=== PATIENT | female | born 1955 | race Caucasian/White ===

== ENCOUNTER 2018-02-04 00:18 | Observation (INO) | payer BC, OTHER ==
--- OUTSIDE RECORDS SUMMARY | 2018-02-04 00:20 | XMS REPORT | Clinical Summary ---
:1955 Author Organization [facility] Address [address] [place] [address] Care Team Providers Name Role Phone Olivia Figueredo MD Primary Care Provider Allergies Active Allergy Reactions Severity Noted Date Comments Aspirin Hives 04/09/2017 Current Medications Prescription Sig. Disp. Refills Start Date End Date Status lisinopril Take 20 mg by Active (PRINIVIL,ZESTRIL) mouth daily. 20 mg tablet dulaglutide 1 i njection 12 Syringe 1 12/25/2017 Active (TRULICITY) 1.5 once weekly to mg/0.5 mL pen replace injectorIndications trulicity 0.75 : Type 2 diabetes mellitus without complication, with long-term current use of insulin empagliflozin Take 1 tablet 90 tablet 1 12/25/2017 Active (JARDIANCE) 25 mg (25 mg total) by tablet mouth daily. simvastatin (ZOCOR) 1 tablet once a 90 tablet 1 12/25/2017 Active 20 MG tablet day insulin GLARGINE INJECT 45 TO 55 20 pen 1 12/25/2017 Active (LANTUS SOLOSTAR UNITS AT 8PM U-100 INSULIN) 100 DAILY FOR 1 unit/mL injection WEEK, THEN (pen)Indications: ADJUST DOSAGE UP Type 2 diabetes FOR FASTING mellitus with BLOOD SUGAR hyperglycemia, with BETWEEN 80 AND long-term current 100 (TDD 60 use of insulin UNITS PER DAY) glimepiride Take 1 tablet (1 30 tablet 2 12/25/2017 12/25/19 Active (AMARYL) 1 MG mg total) by 19 tabletIndications: mouth daily Type 2 diabetes before mellitus with breakfast. hyperglycemia, with long-term current use of insulin levothyroxine Take 1 tablet 30 tablet 2 12/25/2017 12/25/19 Active (SYNTHROID, (50 mcg total) 19 LEVOXYL) 50 mcg by mouth every tabletIndications: morning. Acquired hypothyroidism empagliflozin Take 25 mg by 12/25/19 Discontinued (JARDIANCE) 25 mg mouth daily. 18 tablet simvastatin (ZOCOR) Take 20 mg by 11/13/19 Discontinued 20 MG tablet mouth nightly. 18 dulaglutide Inject 0.75 mg 04/09/20 Discontinued (TRULICITY) 0.75 under the skin 17 mg/0.5 mL pen every 7 days. injector insulin GLARGINE Inject 40 Units 07/24/20 Discontinued (LANTUS SOLOSTAR) under the skin 17 100 unit/mL nightly. injection (pen) dulaglutide 1 i njection 12 Syringe 1 04/09/2017 12/25/19 Discontinued (TRULICITY) 1.5 once weekly to 18 mg/0.5 mL pen replace injectorIndications trulicity 0.75 : Type 2 diabetes mellitus without complication, with long-term current use of insulin, Hypoglycemia insulin GLARGINE Use 55 units 20 pen 1 07/24/2017 12/14/19 Discontinued (LANTUS SOLOSTAR) daily for 1 week 18 100 unit/mL than adjust injection dosing up by 2 (pen)Indications: units daily to Type 2 diabetes TDD 65 U /d mellitus with hyperglycemia, with long-term current use of insulin sertraline (ZOLOFT) Take 1 tablet 30 tablet 2 07/24/2017 10/19/20 Discontinued 25 MG (25 mg total) by 17 tabletIndications: mouth daily. Grief counseling sertraline (ZOLOFT) TAKE 1 TABLET BY 30 tablet 2 10/22/2017 12/25/19 Discontinued 25 MG MOUTH ONCE DAILY 18 tabletIndications: Grief counseling simvastatin (ZOCOR) TAKE 1 TABLET BY 90 tablet 0 11/13/2017 12/25/19 Discontinued 20 MG tablet MOUTH DAILY FOR 18 HIGH CHOLESTEROL LANTUS SOLOSTAR 100 INJECT 45 TO 50 15 mL 0 12/14/2017 12/25/19 Discontinued unit/mL injection UNITS AT 8PM 18 (pen)Indications: DAILY FOR 1 Type 2 diabetes WEEK, THEN mellitus with ADJUST DOSAGE UP hyperglycemia, with FOR FASTING long-term current BLOOD SUGAR use of insulin BETWEEN 80 AND 100 (TDD 60 UNITS PER DAY) Active Problems Problem Noted Date Hypertension Hyperlipidemia Diabetes mellitus Overview: type 2 Arthritis Encounters Date Type Specialty Care Team Description 12/25/2017 Office Visit Internal Medicine Olivia Figueredo, Acquired hypothyroidism (Primary Dx); Type 2 diabetes mellitus with hyperglycemia, with long-term current use of insulin; Type 2 diabetes mellitus without complication, with long-term current use of insulin; Mixed hyperlipidemia; Essential hypertension 12/25/2017 Lab Lab Olivia Figueredo, Type 2 diabetes mellitus with hyperglycemia, with long-term current use of insulin; Grief counseling 12/25/2017 Orders Only Internal Medicine Provider, MD Filomena 12/21/2017 Telephone Family Medicine Olivia Figueredo MD 12/14/2017 Refill Internal Medicine Olivia Figueredo, Type 2 diabetes mellitus MD with hyperglycemia, with long-term current use of insulin 11/13/2017 Refill Internal Olivia Dunn MD 10/19/2017 Refill Internal Medicine Olivia Figueredo, Grief counseling 07/24/2017 Office Visit Internal Medicine Olivia Figueredo, Type 2 diabetes mellitus with hyperglycemia, with long-term current use of insulin ( Primary Dx); Grief counseling; Sebaceous cyst of finger of right hand 04/09/2017 Office Visit Internal Medicine Olivia Figueredo, Hypoglycemia ( Primary Dx); Type 2 diabetes mellitus without complication, with long-term current use of insulin; Essential hypertension; Dyslipidemia; Stress at home after 02/03/2017 Immunizations Name Dates Previously Given Next Due Pneumococcal Polysaccharide 11/22/2017 Tdap 11/22/2017 Family History Medical History Relation Name Comments Heart disease Brother stans implants Hypertension Brother Heart disease Father No Known Problems Maternal Grandfather No Known Problems Maternal Grandmother Heart disease Mother No Known Problems Paternal Grandfather No Known Problems Paternal Grandmother Relation Name Status Comments Brother Alive Father (Age 50) Maternal Grandfather Maternal Grandmother Mother Alive Paternal Grandfather Paternal Grandmother Social History Tobacco Use Types Packs/Day Years Used Date Never Smoker Smokeless Tobacco: Never Used Alcohol Use Drinks/Week oz/Week Comments No Sex Assigned at Date Recorded Not on file Last Filed Vital Signs Vital Sign Reading Time Taken Blood Pressure 112/76 12/25/2017 1:44 PM BLOW PIT OPERATOR Pulse 77 12/25/2017 1:44 PM BLOW PIT OPERATOR Temperature 36.9 C (98.4 F) 12/25/2017 1:44 PM BLOW PIT OPERATOR Respiratory Rate - - Oxygen Saturation 97% 12/25/2017 1:44 PM BLOW PIT OPERATOR Inhaled Oxygen Concentration - - Weight 103 kg (227 lb) 12/25/2017 1:44 PM BLOW PIT OPERATOR Height 165.1 cm (5' 5") 12/25/2017 1:44 PM BLOW PIT OPERATOR Body Mass Index 37.77 12/25/2017 1:44 PM BLOW PIT OPERATOR Plan of Treatment Date Type Specialty Care Team Description 03/26/2018 Office Visit Internal Medicine Olivia Figueredo MD [address] [facility] [address] [place] [address] Health Maintenance Due Date Last Done Comments FOOT EXAM 1963 URINE MICROALBUMIN 1963 COLONOSCOPY 2003 PAP SMEAR 11/05/2011 11/05/2008 ZOSTER VACCINE 2013 MAMMOGRAM 12/07/2016 12/07/2014 OPHTHALMOLOGY EXAM 06/05/2018 06/05/2017 INFLUENZA VACCINE Addressed 11/22/2017, 07/06/2016 Overridden with the intention of not completing the topic Results Miscellaneous Lab Result (12/25/2017) Specimen Performing Laboratory Blood after 02/03/2017 Insurance Payer Benefit Plan / Group Subscriber ID Type Phone Address [employer] xxxxxxxxxxxx HMO Home: [address] [phone] [address]
[2018-02-04] MEDS ORDERED: NA CHLORIDE 0.9% 2,000 ML ONE (01:30)
[2018-02-04 01:56] LABS: Absolute Lymphocytes (CBC) 1.8 K/uL (0.7-4.9); Absolute Monocytes 0.8 K/uL (0.1-1.3); Absolute Neutrophil 12.7 K/uL (1.8-8.0); Basophils % 0.6 % (0-1.3); Eosinophils % 1.7 % (0-4.4); Lymphocytes % 11.6 % (15.3-44.8); MCH 29.7 pg (27.0-35.0); MCV 89.6 fL (80-100); MPV 7.6 fL (7.6-11.3)
[2018-02-04 02:02] LABS: Potassium 3.5 mEq/L (3.6-5.0)
[2018-02-04 02:08] LABS: Albumin 3.9 g/dL (3.2-5.5); Bilirubin Direct 0.1 mg/dL (0-0.2); Bilirubin Total 0.8 mg/dL (0.3-1.2); Protein, Total 7.3 g/dL (6.0-8.3)
[2018-02-04 03:41] LABS: Urine Blood NEGATIVE (NEG); Urine Glucose 2+ (NEG); Urine Protein NEGATIVE (NEG); Urine Specific Gravity 1.015 (1.005-1.030); Urine pH 6.5 (5.0-7.0)
[2018-02-04 03:44] LABS: Urine Bacteria <20 /HPF (<20); Urine Culture Reflex Order NOT NEEDED; Urine RBC <5 /HPF (NONE SEEN)
--- NOTE | 2018-02-04 04:52 | EDPHYS ---
Physician Documentation [facility] Name: Lyndon Leija Age: 62 yrs Sex: Female : 1955 Arrival Date: 02/04/2018 Time: 00:19 Bed 16 Private MD: ED Physician Jose Mejia HPI: 02/04 00:46 This 62 yrs old Female presents to ER via Ambulatory with complaints of pkl Dizziness, Dry Mouth. 00:46 The patient presents with abdominal pain that is diffuse. Onset: The symptoms/episode pkl began/occurred today, 6 hour(s) ago. The symptoms do not radiate. Associated signs and symptoms: Pertinent positives: nausea, dizziness, chills and dry mouth. Historical: - Allergies: 00:46 SALICYLATES; aa1 - Home Meds: 00:46 Jardiance Oral once daily [Active]; Lantus Sub-Q [Active]; lisinopril Oral twice a day aa1 [Active]; Simvastatin Oral once daily [Active]; Trulicity subcutaneous subcutaneous [Active]; levothyroxine oral [Active]; - PMHx: 00:46 Diabetes - IDDM; Hyperlipidemia; Hypertension; Hypothyroidism; aa1 - PSHx: 00:46 ortho sx cassi arms; foot sx; aa1 - Immunization history:: Flu vaccine is up to date. - Social history:: Smoking status: Patient/guardian denies using tobacco. ROS: 00:46 Eyes: Negative for injury, pain, redness, and discharge, ENT: Negative for injury, pkl pain, and discharge, Neck: Negative for injury, pain, and swelling, Cardiovascular: Negative for chest pain, palpitations, and edema, Respiratory: Negative for shortness of breath, cough, wheezing, and pleuritic chest pain. 00:46 Abdomen/GI: Positive for abdominal pain, nausea, of the right upper quadrant, left upper quadrant, right lower quadrant and left lower quadrant. 00:46 Back: Negative for acute changes. 00:46 : Negative for urinary symptoms. 00:46 MS/extremity: Negative for acute changes. 00:46 Skin: Negative for rash. 00:46 Neuro: Negative for altered mental status. Exam: 00:46 Head/Face: Normocephalic, atraumatic. Eyes: Pupils equal round and reactive to light, pkl extra-ocular motions intact. Lids and lashes normal. Conjunctiva and sclera are non-icteric and not injected. Cornea within normal limits. Periorbital areas with no swelling, redness, or edema. ENT: Nares patent. No nasal discharge, no septal abnormalities noted. Tympanic membranes are normal and external auditory canals are clear. Oropharynx with no redness, swelling, or masses, exudates, or evidence of obstruction, uvula midline. Mucous membranes moist. Neck: Trachea midline, no thyromegaly or masses palpated, and no cervical lymphadenopathy. Supple, full range of motion without nuchal rigidity, or vertebral point tenderness. No Meningismus. Chest/axilla: Normal chest wall appearance and motion. Nontender with no deformity. No lesions are appreciated. Cardiovascular: Regular rate and rhythm with a normal S1 and S2. No gallops, murmurs, or rubs. Normal PMI, no JVD. No pulse deficits. Respiratory: Lungs have equal breath sounds bilaterally, clear to auscultation and percussion. No rales, rhonchi or wheezes noted. No increased work of breathing, no retractions or nasal flaring. 00:46 Abdomen/GI: Bowel sounds: normal, Palpation: moderate abdominal tenderness, in all quadrants. 00:46 Back: Exam negative for acute changes. 00:46 : Exam negative for acute changes. 00:46 Musculoskeletal/extremity: Exam is negative for acute changes. 00:46 Skin: Exam negative for rash. 00:46 Neuro: Orientation: is normal, Mentation: is normal, Cranial nerves: grossly normal, Motor: is normal. Vital Signs: 00:25 BP 122 / 60; Pulse 86; Resp 30; Temp 98.2(O); Pulse Ox 100% on R/A; Weight 102.06 kg; aa1 Height 5 ft. 5 in. (165.10 cm); Pain 8/10; 02:20 BP 146 / 76; Pulse 88; Resp 20; Pulse Ox 99% on R/A; Pain 5/10; aa1 03:48 BP 155 / 75; Pulse 92; Resp 20; Pulse Ox 98% on R/A; Pain 5/10; aa1 04:44 BP 156 / 67; Pulse 104; Resp 20; Pulse Ox 98% on R/A; Pain 4/10; aa1 05:10 BP 150 / 72 RA Supine (auto/lg); Pulse 105 RA; Resp 20; Temp 102.5(O); Pulse Ox 98% on cb2 R/A; 05:55 BP 145 / 66; Pulse 104; Resp 18; Temp 101.8(O); Pulse Ox 96% ; aa1 00:25 Body Mass Index 37.44 (102.06 kg, 165.10 cm) aa1 MDM: 00:27 Patient medically screened. pkl 04:50 Data reviewed: vital signs, nurses notes, lab test result(s), radiologic studies, CT pkl scan. 04 00:45 Order name: Amylase, Serum; Complete Time: 04:04 pkl 02/04 00:45 Order name: Basic Metabolic Panel; Complete Time: 04:04 pkl 02/04 00:46 Order name: CBC with Diff; Complete Time: 02:02 pkl 02/04 00:46 Order name: Creatinine for Radiology; Complete Time: 02:02 pkl 02/04 00:46 Order name: Hepatic Function; Complete Time: 04:04 pkl 02/04 00:46 Order name: Lipase; Complete Time: 04:04 pkl 02/04 00:46 Order name: Urine Microscopic Only; Complete Time: 04:04 pkl 02/04 01:15 Order name: Urine Dipstick--Ancillary (enter results); Complete Time: 04:04 cb2 02/04 05:00 Order name: Basic Metabolic Panel EDMS 02/04 05:00 Order name: Basic Metabolic Panel EDMS 02/04 05:00 Order name: CBC with Automated Diff EDMS 02/04 05:00 Order name: CBC with Automated Diff EDMS 02/04 00:46 Order name: IV Saline Lock; Complete Time: 01:08 pkl 02/04 00:46 Order name: Labs collected and sent; Complete Time: 01:08 pkl 02/04 00:46 Order name: Urine Dipstick-Ancillary (obtain specimen); Complete Time: 01:08 pkl 02/04 00:46 Order name: CT Abd/Pelvis - W/Contrast pkl 02/04 05:01 Order name: EKG; Complete Time: 05:01 pkl 02/04 05:01 Order name: XRAY CXR (1 view) pkl Administered Medications: 01:15 Drug: NS 0.9% 1000 ml Route: IV; Rate: 1000 ml; Site: right antecubital; aa1 02:32 Follow up: IV Status: Completed infusion aa1 02:32 Drug: NS 0.9% 1000 ml Route: IV; Rate: 125 ml/hr; Site: right antecubital; aa1 04:43 Follow up: IV Status: Infusion continued upon admission aa1 05:09 Drug: Flagyl 500 mg Volume: 100 ml; Route: IVPB; Rate: 200 ml/hr; Infused Over: 30 aa1 mins; Site: right antecubital; 06:05 Follow up: IV Status: Completed infusion aa1 05:10 Drug: Zofran 4 mg Route: IVP; Site: right antecubital; aa1 05:56 Follow up: Response: No adverse reaction; Nausea is decreased aa1 05:10 Drug: LevaQUIN 500 mg Volume: 100 ml; Route: IVPB; Infused Over: 60 mins; Site: right aa1 antecubital; 06:06 Follow up: IV Status: Completed infusion aa1 05:16 Drug: Tylenol 1000 mg Route: PO; aa1 05:56 Follow up: Response: Temperature is decreased aa1 Disposition: 02/04/18 04:51 Hospitalization ordered by Walter Echeverria for Observation. Preliminary diagnosis is Acute appendicitis. - Bed requested for Telemetry/MedSurg (observation). - Status is Observation. aa1 - Condition is Stable. - Problem is new. - Symptoms are unchanged. UTI on Admission? No Signatures: Dispatcher [employer] EDClaudia Mancilla RN RN kl Kern, Alissa, RN RN aa1 Jose Mejia MD MD pkl Corrections: (The following items were deleted from the chart) 05:03 05:00 Lipase ordered. EDMS EDMS 05:03 05:00 Liver (Hepatic) Function ordered. EDMS EDMS
--- NOTE | 2018-02-04 04:52 | ER ---
Nurse's Notes [facility] Name: Lyndon Leija Age: 62 yrs Sex: Female : 1955 Arrival Date: 02/04/2018 Time: 00:19 Bed 16 Private MD: Diagnosis: Acute appendicitis Presentation: 02/04 00:25 Presenting complaint: Patient states: at approx 1830 yesterday evening after eating she aa1 began to have generalized abdominal discomfort with nausea, chills. dry mouth, and dizziness. Reports similar symptoms occurred 2 days prior but resolved on their own. Transition of care: patient was not received from another setting of care. Onset of symptoms was February 03, 2018 at 18:30. Care prior to arrival: None. 00:25 Method Of Arrival: Ambulatory aa1 00:25 Acuity: PAVEL 3 aa1 Historical: - Allergies: 00:46 SALICYLATES; aa1 - Home Meds: 00:46 Jardiance Oral once daily [Active]; Lantus Sub-Q [Active]; lisinopril Oral twice a day aa1 [Active]; Simvastatin Oral once daily [Active]; Trulicity subcutaneous subcutaneous [Active]; levothyroxine oral [Active]; - PMHx: 00:46 Diabetes - IDDM; Hyperlipidemia; Hypertension; Hypothyroidism; aa1 - PSHx: 00:46 ortho sx cassi arms; foot sx; aa1 - Immunization history:: Flu vaccine is up to date. - Social history:: Smoking status: Patient/guardian denies using tobacco. Screenin:30 Abuse screen: Denies threats or abuse. Denies injuries from another. Nutritional aa1 screening: No deficits noted. Tuberculosis screening: No symptoms or risk factors identified. Fall Risk None identified. Assessment: 00:30 General: Appears in no apparent distress. uncomfortable, Behavior is calm, cooperative, aa1 appropriate for age. Pain: Complains of pain in abdomen Pain currently is 8 out of 10 on a pain scale. Quality of pain is described as dull, Pain began suddenly, Is continuous. Neuro: Level of Consciousness is awake, alert, obeys commands, Oriented to person, place, time, situation. Cardiovascular: Denies chest pain, palpitations, shortness of breath, Heart tones S1 S2 present Rhythm is regular. Respiratory: Airway is patent Respiratory effort is even, unlabored, Respiratory pattern is tachypnea. GI: Abdomen is obese, Bowel sounds present X 4 quads. Abd is soft X 4 quads Reports lower abdominal pain, upper abdominal pain, nausea. : No signs and/or symptoms were reported regarding the genitourinary system. EENT: No signs and/or symptoms were reported regarding the EENT system. Derm: Skin is intact, is healthy with good turgor, Skin is pink, warm \T\ dry. Musculoskeletal: Circulation, motion, and sensation intact. Capillary refill < 3 seconds. 01:10 Reassessment: Patient appears in no apparent distress at this time. Patient and/or aa1 family updated on plan of care and expected duration. Pain level reassessed. Patient is alert, oriented x 3, equal unlabored respirations, skin warm/dry/pink. Pt reports pain mostly resolved at this time and would like to wait on pain and nausea medication Patient states feeling better. Patient states symptoms have improved. 01:30 Reassessment: CT notified of finishing contrast. jd3 02:26 Reassessment: Patient appears in no apparent distress at this time. Patient and/or aa1 family updated on plan of care and expected duration. Pain level reassessed. Patient is alert, oriented x 3, equal unlabored respirations, skin warm/dry/pink. Awaiting CT scan. 03:48 Reassessment: Patient appears in no apparent distress at this time. Patient and/or aa1 family updated on plan of care and expected duration. Pain level reassessed. Patient is alert, oriented x 3, equal unlabored respirations, skin warm/dry/pink. Awaiting CT results. 04:43 Reassessment: Patient appears in no apparent distress at this time. Patient and/or aa1 family updated on plan of care and expected duration. Pain level reassessed. Patient is alert, oriented x 3, equal unlabored respirations, skin warm/dry/pink. Awaiting admission by ERP. 05:56 Reassessment: Patient appears in no apparent distress at this time. Patient and/or aa1 family updated on plan of care and expected duration. Pain level reassessed. Patient is alert, oriented x 3, equal unlabored respirations, skin warm/dry/pink. Attempted to call report to floor; nurse unavailable and will call back. 06:24 Reassessment: Patient appears in no apparent distress at this time. Patient is alert, aa1 oriented x 3, equal unlabored respirations, skin warm/dry/pink. Report given to Tori on 2nd floor. Vital Signs: 00:25 BP 122 / 60; Pulse 86; Resp 30; Temp 98.2(O); Pulse Ox 100% on R/A; Weight 102.06 kg; aa1 Height 5 ft. 5 in. (165.10 cm); Pain 8/10; 02:20 BP 146 / 76; Pulse 88; Resp 20; Pulse Ox 99% on R/A; Pain 5/10; aa1 03:48 BP 155 / 75; Pulse 92; Resp 20; Pulse Ox 98% on R/A; Pain 5/10; aa1 04:44 BP 156 / 67; Pulse 104; Resp 20; Pulse Ox 98% on R/A; Pain 4/10; aa1 05:10 BP 150 / 72 RA Supine (auto/lg); Pulse 105 RA; Resp 20; Temp 102.5(O); Pulse Ox 98% on cb2 R/A; 05:55 BP 145 / 66; Pulse 104; Resp 18; Temp 101.8(O); Pulse Ox 96% ; aa1 00:25 Body Mass Index 37.44 (102.06 kg, 165.10 cm) aa1 ED Course: 00:19 Patient arrived in ED. ds1 00:25 Arm band placed on left wrist. Patient placed in an exam room, on a stretcher. aa1 00:27 Jose Mejia MD is Attending Physician. pkl 00:30 Patient has correct armband on for positive identification. Bed in low position. Call aa1 light in reach. Side rails up X2. Pulse ox on. NIBP on. Warm blanket given. 00:41 Erinn De Luna, RACHEL is Primary Nurse. aa1 00:43 Triage completed. aa1 01:16 Initial lab(s) drawn, by me, sent to lab. Urine collected: clean catch specimen, thiago cb2 colored. Inserted saline lock: 20 gauge in right antecubital area, using aseptic technique. Blood collected. 03:39 CT Abd/Pelvis - W/Contrast In Process Unspecified. EDMS 04:51 Walter Echeverria MD is Hospitalizing Provider. pkl 05:18 No provider procedures requiring assistance completed. Patient admitted, IV remains in aa1 place. 05:51 X-ray completed. Portable x-ray completed in exam room. Patient tolerated procedure kw well. Administered Medications: 01:15 Drug: NS 0.9% 1000 ml Route: IV; Rate: 1000 ml; Site: right antecubital; aa1 02:32 Follow up: IV Status: Completed infusion aa1 02:32 Drug: NS 0.9% 1000 ml Route: IV; Rate: 125 ml/hr; Site: right antecubital; aa1 04:43 Follow up: IV Status: Infusion continued upon admission aa1 05:09 Drug: Flagyl 500 mg Volume: 100 ml; Route: IVPB; Rate: 200 ml/hr; Infused Over: 30 aa1 mins; Site: right antecubital; 06:05 Follow up: IV Status: Completed infusion aa1 05:10 Drug: Zofran 4 mg Route: IVP; Site: right antecubital; aa1 05:56 Follow up: Response: No adverse reaction; Nausea is decreased aa1 05:10 Drug: LevaQUIN 500 mg Volume: 100 ml; Route: IVPB; Infused Over: 60 mins; Site: right aa1 antecubital; 06:06 Follow up: IV Status: Completed infusion aa1 05:16 Drug: Tylenol 1000 mg Route: PO; aa1 05:56 Follow up: Response: Temperature is decreased aa1 Outcome: 04:51 Decision to Hospitalize by Provider. pkl 06:24 Admitted to Med/surg accompanied by tech, family with patient, via wheelchair, room aa1 205, with chart, Report called to Herrin 06:24 Condition: good 06:24 Instructed on the need for admit, Demonstrated understanding of instructions. 06:25 Patient left the ED. aa1 Signatures: Dispatcher [employer] EDErinn Montoya RN RN aa1 Jose Mejia MD MD pkAyla Chung ds1 Delaney Reed Christian cb2 Davies, Jonathon RN RN jd3
[2018-02-04] MEDS ORDERED: MORPHINE 4 MG/ML SYR IV PRN (04:55)
[2018-02-04] MEDS ORDERED: ACETAMINOPHEN 500 MG TAB PO PRN (04:55)
[2018-02-04] MEDS ORDERED: PROMETHAZINE 25 MG/ML VIAL IV PRN (04:58)
[2018-02-04] MEDS ORDERED: Levofloxacin500mg IV 500 MG/100 ML BAG IV SCH (05:00)
[2018-02-04] MEDS ORDERED: D5 0.45 NS 1,000 ML IV SCH (05:00)
[2018-02-04] MEDS ORDERED: Levofloxacin500mg IV 500 MG/100 ML BAG IV ONE (05:13)
[2018-02-04] MEDS ORDERED: ONDANSETRON 4 MG/2 ML VIAL ONE ×2 (05:13→11:11)
[2018-02-04] MEDS ORDERED: METRONIDAZOLE 500mg IVPB 500 MG/100 ML BAG IV ONE (05:13)
[2018-02-04] MEDS ORDERED: ACETAMINOPHEN 500 MG TAB ONE (05:32)
[2018-02-04] MEDS: METRONIDAZOLE 500mg IVPB 500 MG/100 ML BAG IV SCH ×2 (06:00→12:21)
--- NOTE | 2018-02-04 07:23 | RAD REPORT ---
EXAM DESCRIPTION: RAD - Chest Single View - 02/04/2018 5:52 am CLINICAL HISTORY: Preop chest, acute appendicitis COMPARISON: None. TECHNIQUE: AP portable chest image was obtained 0534 hours . FINDINGS: Lung volumes are relatively low. Interstitial markings are mildly prominent with the basel ine the patient unknown. No focal consolidation, mass or failure. Lung markings are probably chronic though minimal interstitial edema or infiltrate cannot be excluded on baseline imaging. Heart and vas culature are normal. No measurable pleural effusion and no pneumothorax. No gross bony abnormality se en. No acute aortic findings suspected. IMPRESSION: Mild prominence of the interstitial markings throughout the lung fernandez suspected to be baseline. No mass, consolidation or significant failure.
--- NOTE | 2018-02-04 07:28 | RAD REPORT ---
EXAM DESCRIPTION: CT - Abdomen Pelvis W Contrast - 02/04/2018 3:40 am CLINICAL HISTORY: Abdominal pain A preliminary written report was provided at the time of the study, and the report was reviewed prio r to final dictation. COMPARISON: None. TECHNIQUE: Biphasic, helical CT imaging of the abdomen and pelvis was performed following 100 ml non -ionic IV contrast. Oral contrast was given. All CT scans are performed using dose optimization technique as appropriate and may include automated exposure control or mA/KV adjustment according to patient size. FINDINGS: No suspicious findings in the lung bases. The liver, spleen, and pancreas show no suspicious findings. Gallbladder and biliary tree are also wi thout suspicious finding. Symmetric renal function is seen with no hydronephrosis or suspicious renal mass. No pyelonephritis o r acute renal parenchymal process. No adrenal abnormality. Mostly contracted urinary bladder shows no suspicious finding. Uterine size is normal. Calcified fibroid seen along the fundus. No primary ovar malcolm process seen. No stomach or small bowel abnormality. The appendix is abnormal measuring 11 mm in diameter. There is wall thickening with periappendiceal inflammatory stranding. A small amount of free fluid is collect ing in the dependent portion of the pelvis. The cecum is low lying which makes the appendix partially retrocecal. No abscess or free air. Colon otherwise without acute or suspicious finding. No pneumat osis. No other area of inflammatory stranding. A small 2 centimeter x 1 centimeter umbilical hernia is present. The neck is 1 centimeter. No bowel involvement or edematous fat. No suspicious bony findings. IMPRESSION: Acute appendicitis with no abscess, free air or other complicating factor. The cecum is low lying which places the appendix retrocecal in the right lower quadrant.
[2018-02-04] MEDS ORDERED: BUPIVACAINE 0.25% PF 10 ML VIAL ONE (10:00)
[2018-02-04] MEDS ORDERED: NA CHLORIDE 0.9% 1,000 ML ONE (10:09)
[2018-02-04] MEDS ORDERED: PROPOFOL 200 MG/20 ML VIAL IV ONE (10:18)
[2018-02-04] MEDS ORDERED: MIDAZOLAM HCL 2 MG/2 ML INJ ONE (10:18)
[2018-02-04] MEDS ORDERED: LIDOCAINE 1% MPF 5 ML VIAL ONE (10:18)
[2018-02-04] MEDS ORDERED: FENTANYL CITR 100 MCG/2 ML ONE (10:19)
[2018-02-04] MEDS ORDERED: ROCURONIUM 50 MG/5 ML VIAL IV ONE (10:19)
[2018-02-04] MEDS ORDERED: KETOROLAC 30 MG/ML INJ ONE (11:11)
[2018-02-04] MEDS ORDERED: GLYCOPYRROLATE 0.2 MG/ML SYR ONE ×2 (11:11)
[2018-02-04] MEDS ORDERED: NEOSTIGMINE 1 MG/ML -5 ML SYRINGE ONE (11:11)
--- NOTE | 2018-02-04 11:15 | P.OP ---
Preoperative diagnosis: Acute Appendicitis Postoperative diagnosis: Acute Appendicitis Primary procedure: Laparoscopic Appendectomy Anesthesia: GETA + Local Estimated blood loss: <10cc Specimen: Appendix Findings: Non-Perforated appendicitis Complications: None Transferred to: Recovery Room Condition: Good
[2018-02-04 11:44] VITALS: O2SAT 94
[2018-02-04 12:24] VITALS: BP 96/54; TEMP 98.7
--- NOTE | 2018-02-04 19:12 | HP ---
Date of Admission: 02/04/2018 Brief History Of Present Illness: The patient is a 62-year-old female who presents with approximatel y 2-day history of severe lower quadrant abdominal pain predominantly in the right lower quadrant and in the periumbilical region. She states that the pain began approximately 2 days ago, it was sharp stabbing and became increased intensity. She has had some lower abdominal type symptoms for approxim ately 2 weeks. It was associated with diarrhea over several days and fever and chills beginning last time. She has had similar episodes before about 9-10 months ago, but they resolved without operativ e management at that time and no admission and/or antibiotics were placed at that time. She has had no nausea, vomiting. No other aggravating or alleviating factors. Past Medical History: Significant for diabetes, hypertension, hyperlipidemia, hypothyroidism. Past Surgical History: She has had bilateral forearm fractures repair and foot surgery. Allergies: SHE IS ALLERGIC TO SALICYLATES SUCH ASPIRIN. Home Medications: Include Jardiance, Lantus, lisinopril, simvastatin, Trulicity, and levothyroxine. Social History: She denies smoking, alcohol, or recreational drug use. She works at the [employer] in [email or web address] at the present facility/hospital facility there. Physical Examination: Vital Signs: At time of my examination, her BMI is 37.4. Blood pressure 110/56, pulse 104, respirat ory rate 18, temperature 99.7. General: She is awake, alert, and oriented. Psychiatric: She is appropriate, conversive. HEENT: She is normocephalic. Sclerae anicteric. Mucous membranes are moist. Oropharynx clear. Neck: Supple. No JVD. Chest: Normal expansion and excursion. Cardiovascular: Regular rate and rhythm. Pulmonary: Clear to auscultation bilaterally. Abdomen: Soft with positive right lower quadrant and focal peritonitis. Positive rebound, positive guarding. Her abdomen is obese generally. Extremities: No clubbing, cyanosis, or edema. Well-healed scars are evident at the bilateral upper extremities. Laboratory Data: Reveals a white blood count of 15.7, hemoglobin of 14.2, hematocrit of 43.0, platel et count is 266. Her neutrophils are 81.1. Her sodium 137, potassium 3.5, chloride 101, carbon diox demario is 27, BUN 25, creatinine 0.9, glucose is 135, total bilirubin is 0.8, AST 24, ALT 20, alkaline p hosphatase is 65, lipase is 19. UA was essentially negative down the line. She had a CT scan perfor med and pelvis. The official dictation shows a retrocecal appendix, which shows evidence of acute ap pendicitis with no abscess or free air or other complicating factor. Small 2 cm x 1 cm umbilical her dimitri is present. The appendix was abnormal measuring approximately 11 mm in diameter. Assessment And Plan: This is a 62-year-old female who presents with signs and symptoms of acute appe ndicitis. 1.IV fluid hydration. 2.Antibiotic coverage. 3.I have explained the risks, benefits, and alternatives of laparoscopic, possible open appendectomy , including but not limited to bleeding, infection, damage to surrounding tissue, need for further op erations and procedures. The patient agrees to proceed as indicated. RADHA/GINA Voice ID: [id number]
--- NOTE | 2018-02-04 21:24 | OP ---
Date of Procedure: 02/04/2018 Surgeon: Walter Echeverria MD, Preoperative Diagnosis: Acute appendicitis. Postoperative Diagnosis: Acute appendicitis. Procedure Performed: Laparoscopic appendectomy. Anesthesia: General endotracheal plus local with 0.25% Marcaine with epinephrine. Estimated Blood Loss: Less than 10 cc. Specimen: Vermiform appendix. Findings: Nonperforated appendicitis with some free pelvic fluid. Complications: None. Disposition: Transferred to recovery room in good condition. Procedure In Detail: After informed consent was obtained, the patient was brought to the operating r oom and prepped and draped in the usual sterile fashion. After adequate anesthesia was achieved, an infraumbilical area was anesthetized with 0.25% Marcaine and sharply incised. A 5-mm trocar was intr oduced into the abdomen without evidence of complication. Insufflation was obtained to 15 mmHg at th is time. The area was inspected. There was no injury to vital structure upon entry into the abdomen . Additional trocar site was chosen in the suprapubic region. This was similarly anesthetized and s harply incised. A 5-mm trocar was introduced into the abdomen without evidence of complication. The umbilical trocar was then up-sized to 12 mm under direct visualization without evidence of complicat ion. Additional trocar site was chosen in the right lower quadrant. Similarly anesthetized and molly ply incised. A 5-mm trocar was introduced into the abdomen without evidence of complication. The ap pendix was then grasped, elevated, and found to be in a retrocecal position. It was not appropriate at this time. However, there were suppurative changes to the area and some free pelvic fluid. The m esoappendiceal window was created with the [place] retractor. After appropriately positioning the a ppendix, an Endo SUDHIR 35 blue load was fired across the base of the appendix with good approximation o f the tissues. The clips were found to be in good anatomic position without any leakage. The LigaSu re device then used to take the mesoappendix down with good hemostasis at this time. The appendix wa s then placed in an EndoCatch bag and removed through the umbilical trocar. Reinsufflation was obtai samantha this time. The area was copiously irrigated multiple times and the pelvis was copiously irrigate d multiple times and suctioned dry until completely clear. The area was inspected for hemostasis, wh ich was achieved at the time at the end of the procedure without any additional hemostatic maneuvers and the clips were found to be in good anatomic position without any leakage. Attention was then turned to the umbilical trocar site. The trocar was then removed and the trocar s ite was closed using a Pa-Joe suture passer with an 0 Vicryl in interrupted fashion with goo d approximation of tissues. The abdomen was completely desufflated under direct visualization withou t evidence of complication. Trocars were then removed. All skin incisions were copiously irrigated multiple times until completely clear and then dried and then all skin incisions were closed with 4-0 Monocryl in a running fashion. Dermabond placed over the top. The patient tolerated the procedure well without evidence of complication and transferred to the PACU in good condition. All counts were correct at the end of the case. RADHA/GINA Voice ID: [id number] Report ID: [id number]
== END 2018-02-04 14:10 | disposition home or self-care (01) ==
LOC: ER 00:18 → ERHOLD 04:54 → 2ND 05:31
PROVIDERS: ADMIT Surgery; ATTEND Surgery
PROC: 0DTJ4ZZ Resection of Appendix, Percutaneous Endoscopic Approach (ICD-10-PCS; principal; 2018-02-04 10:00)
DX: K35.80 Unspecified acute appendicitis (principal); I10 Essential (primary) hypertension; E11.9 Type 2 diabetes mellitus without complications; E78.5 Hyperlipidemia, unspecified; E03.9 Hypothyroidism, unspecified
CPT/HCPCS: 36415; 71045; 74177; 80048; 80076; 81003; 81015; 82150; 82962; 83690; 85025; 88304; 88305; 96361; 96365; 96368; 96375; 99285; G0378; J2250; J2405; J2710; J3010; J7030; Q9967

== ENCOUNTER 2018-03-08 07:52 | Day surgery (SDC) | payer BC ==
--- OUTSIDE RECORDS SUMMARY | 2018-03-08 07:55 | XMS REPORT | Clinical Summary ---
:1955 Author Organization [facility] Address [address] [place] [address] Care Team Providers Name Role Phone Olivia [...] 1 12/25/2017 Active 20 MG tablet day glimepiride Take 1 tablet (1 30 tablet 2 12/25/2017 12/25/19 Active (AMARYL) 1 MG mg total) by 19 tabletIndications: mouth daily Type 2 diabetes before mellitus with breakfast. hyperglycemia, with long-term current use of insulin levothyroxine Take 1 tablet 30 tablet 2 12/25/2017 12/25/19 Active (SYNTHROID, (50 mcg total) 19 LEVOXYL) 50 mcg by mouth every tabletIndications: morning. Acquired hypothyroidism LANTUS SOLOSTAR INJECT 45 TO 55 15 mL 0 03/07/2018 Active U-100 INSULIN 100 UNITS AT 8PM unit/mL injection DAILY FOR 1 (pen)Indications: WEEK, THEN Type 2 diabetes ADJUST DOSAGE UP mellitus with FOR FASTING hyperglycemia, with BLOOD SUGAR long-term current BETWEEN 80 AND use of insulin 100 (TDD 60 UNITS PER DAY) empagliflozin Take 25 mg by 12/25/19 Discontinued [...] AND 100 (TDD 60 UNITS PER DAY) insulin GLARGINE INJECT 45 TO 55 20 pen 1 12/25/2017 03/07/20 Discontinued (LANTUS SOLOSTAR UNITS AT 8PM 18 U-100 INSULIN) 100 DAILY FOR 1 unit/mL injection WEEK, THEN (pen)Indications: ADJUST DOSAGE UP Type 2 diabetes FOR FASTING mellitus with BLOOD SUGAR hyperglycemia, with BETWEEN 80 AND long-term current 100 (TDD 60 use of insulin UNITS PER DAY) Active Problems Problem Noted Date Hypertension Hyperlipidemia Diabetes mellitus Overview: type 2 Arthritis Encounters Date Type Specialty Care Team Description 03/07/2018 Refill Internal Medicine Olivia Figueredo, Type 2 diabetes mellitus with hyperglycemia, with long-term current use of insulin 12/25/2017 Office Visit Internal Medicine Olivia Figueredo, [...] Essential hypertension; Dyslipidemia; Stress at home after 03/07/2017 Immunizations Name Dates Previously Given Next Due [...] Taken Blood Pressure 112/76 12/25/2017 1:44 PM LINUX SOLARIS ADMINISTRATOR Pulse 77 12/25/2017 1:44 PM LINUX SOLARIS ADMINISTRATOR Temperature 36.9 C (98.4 F) 12/25/2017 1:44 PM LINUX SOLARIS ADMINISTRATOR Respiratory Rate - - Oxygen Saturation 97% 12/25/2017 1:44 PM LINUX SOLARIS ADMINISTRATOR Inhaled Oxygen Concentration - - Weight 103 kg (227 lb) 12/25/2017 1:44 PM LINUX SOLARIS ADMINISTRATOR Height 165.1 cm (5' 5") 12/25/2017 1:44 PM LINUX SOLARIS ADMINISTRATOR Body Mass Index 37.77 12/25/2017 1:44 PM LINUX SOLARIS ADMINISTRATOR Plan of Treatment Date Type Specialty Care Team Description 03/26/2018 Office Visit Internal Medicine Olivia Figueredo MD [address] [address] Health Maintenance Due Date Last Done Comments FOOT EXAM 1963 URINE MICROALBUMIN 1963 COLONOSCOPY 2003 SHINGRIX VACCINE (#1) 2003 PAP SMEAR 11/05/2011 11/05/2008 ZOSTER VACCINE 2013 MAMMOGRAM 12/07/2016 12/07/2014 INFLUENZA VACCINE 06/05/2018 11/22/2017, 07/06/2016 OPHTHALMOLOGY EXAM 06/05/2018 06/05/2017 Results Miscellaneous Lab Result (12/25/2017) Specimen Performing Laboratory Blood after 03/07/2017 Insurance Payer Benefit Plan / Group Subscriber ID Type Phone Address [employer] xxxxxxxxxxxx HMO Home: Jazmyne ANAND y [phone] [id number]
[2018-03-08] MEDS ORDERED: NA CHLORIDE 0.9% 1,000 ML ONE (07:58)
[2018-03-08] MEDS ORDERED: LIDOCAINE 1% MPF 5 ML VIAL ONE (09:05)
[2018-03-08] MEDS ORDERED: PROPOFOL 200 MG/20 ML VIAL IV ONE (09:05)
--- NOTE | 2018-03-08 09:41 | ENDO RPT ---
[address], [address] COLONOSCOPY PROCEDURE REPORT EXAM DATE: 03/08/2018 PATIENT NAME: Lyndon Leija MR #: [id number] BIRTHDATE: 1955 ATTENDING: Walter Echeverria DR STATUS: outpatient [employer] SALES DIRECTOR: Gloria Kimble RN and Preston Brown INDICATIONS: The patient is a 62 yr old Female here for a colonoscopy due to colon cancer screening and abdominal pain PROCEDURE PERFORMED: Colonoscopy with biopsy - cold polypectomy MEDICATIONS: Per Anesthesia. ESTIMATED BLOOD LOSS: None CONSENT: The patient understands the risks and benefits of the procedure and understands that these risks include, but are not limited to: sedation, allergic reaction, infection, perforation and/or bleeding. Alternative means of evaluation and treatment include, among others: physical exam, x-rays, and/or surgical intervention. The patient elects to proceed with this endoscopic procedure. DESCRIPTION OF PROCEDURE: During intra-op preparation period all mechanical medical equipment was checked for proper function. Hand hygiene and appropriate measures for infection prevention was taken. Procedure, possible complications, alternatives including, but not limited to possibility of bleeding, perforation, tear, infection, sepsis, need for surgery, need for blood transfusion, were explained to the patient. After the risks, benefits and alternatives of the procedure were thoroughly explained, Informed consent was verified, confirmed and timeout was successfully executed by the treatment team. The patient was placed in the left lateral position. A digital rectal exam was performed and revealed internal hemorrhoids and A digital rectal exam was performed and revealed a skin tag. After appropriate level of anesthesia, the scope was passed. The EC-3890Li ([id number]) endoscope was introduced through the anus and advanced to the cecum, which was identified by the ileocecal valve. The quality of the prep was fair. The instrument was then slowly withdrawn as the colon was fully examined. Scope withdrawal time was 10 minutes. COLON FINDINGS: Three small smooth sessile polyps with friable surfaces were found at the cecum, hepatic flexure, and in the left colon. A polypectomy was performed with jumbo cold forceps. The resection was complete, the polyp tissue was completely retrieved and sent to histology. Small internal hemorrhoids were found. Retroflexed views revealed no abnormalities. The scope was then completely withdrawn from the patient and the procedure terminated. ADVERSE EVENTS: There were no complications. IMPRESSIONS: 1. Three small sessile polyps were found at the cecum, hepatic flexure, and in the left colon; polypectomy was performed in a piecemeal fashion with jumbo cold forceps 2. Small internal hemorrhoids RECOMMENDATIONS: 1. await biopsy results 2. avoid NSAIDS for 2 weeks 3. fiber rich diet 4. follow-up: office 2 week(s) 5. hemorrhoidal hygiene 6. increase dietary water RECALL: Return in 5 year(s) for Colonoscopy, pending biopsy results. Walter Echeverria DR eSigned: Walter Echeverria DR 03/08/2018 9:41 AM cc: CPT CODES: ICD9 CODES: PATIENT NAME: Lyndon Lieja MR#: [id number]
[2018-03-08 10:43] VITALS: BP 132/72; TEMP 97.7; O2SAT 100
== END 2018-03-08 10:17 | disposition home or self-care (01) ==
LOC: OR 07:52
PROVIDERS: ATTEND Surgery
PROC: 0DBL8ZX Excision of Transverse Colon, Via Natural or Artificial Opening Endoscopic, Diagnostic (ICD-10-PCS; 2018-03-08)
PROC: 0DBG8ZX Excision of Left Large Intestine, Via Natural or Artificial Opening Endoscopic, Diagnostic (ICD-10-PCS; 2018-03-08)
PROC: 0DBH8ZX Excision of Cecum, Via Natural or Artificial Opening Endoscopic, Diagnostic (ICD-10-PCS; principal; 2018-03-08 09:15)
DX: D12.0 Benign neoplasm of cecum (principal); D12.3 Benign neoplasm of transverse colon; D12.4 Benign neoplasm of descending colon; I10 Essential (primary) hypertension; K64.8 Other hemorrhoids; E11.9 Type 2 diabetes mellitus without complications; E03.9 Hypothyroidism, unspecified; E78.5 Hyperlipidemia, unspecified; E66.9 Obesity, unspecified; Z88.6 Allergy status to analgesic agent; Z82.49 Family history of ischemic heart disease and other diseases of the circulatory system; Z80.8 Family history of malignant neoplasm of other organs or systems
CPT/HCPCS: 82962; 88305; J7030

== ENCOUNTER 2021-09-26 07:30 | Day surgery (SDC) | payer BC ==
[2021-09-26] MEDS ORDERED: NA CHLORIDE 0.9% 1,000 ML ONE (07:37)
[2021-09-26] MEDS ORDERED: propofoL 200 MG/20 ML VIAL IV ONE (08:15)
[2021-09-26] MEDS ORDERED: LIDOCAINE 1% MPF 5 ML VIAL ONE (08:16)
[2021-09-26] MEDS ORDERED: GLYCOPYRROLATE 0.2 MG/ML SYR ONE (08:16)
[2021-09-26] MEDS ORDERED: METOCLOPRAMIDE 10 MG/2mL INJ ONE (08:24)
[2021-09-26] MEDS ORDERED: NA CIT/CITRIC AC 30 ML ORAL UDC ONE (08:25)
[2021-09-26] MEDS ORDERED: NA CIT/CITRIC AC 30 ML ORAL UDC PO ONE (08:27)
[2021-09-26] MEDS ORDERED: METOCLOPRAMIDE 10 MG/2mL INJ IV ONE (08:27)
--- NOTE | 2021-09-26 09:18 | ENDO RPT ---
[address], [address] COLONOSCOPY PROCEDURE REPORT EXAM DATE: 09/26/2021 PATIENT NAME: Lyndon Leija MR #: [id number] BIRTHDATE: 1955 ATTENDING: Walter Echeverria DR STATUS: outpatient ELECTRIC PILE DRIVER OPERATOR: Vannesa Tapia RN and Maida LOPEZ INDICATIONS: The patient is a 66 yr old Female here for a colonoscopy due to colon cancer screening PROCEDURE PERFORMED: Colonoscopy with biopsy - cold polypectomy MEDICATIONS: Per Anesthesia. ESTIMATED BLOOD LOSS: None CONSENT: The patient understands the risks and benefits of the procedure and understands that these risks include, but are not limited to: sedation, allergic reaction, infection, perforation and/or bleeding. Alternative means of evaluation and treatment include, among others: physical exam, x-rays, and/or surgical intervention. The patient elects to proceed with this endoscopic procedure. DESCRIPTION OF PROCEDURE: During intra-op preparation period all mechanical medical equipment was checked for proper function. Hand hygiene and appropriate measures for infection prevention was taken. Procedure, possible complications, alternatives including, but not limited to possibility of bleeding, perforation, tear, infection, sepsis, need for surgery, need for blood transfusion, were explained to the patient. After the risks, benefits and alternatives of the procedure were thoroughly explained, Informed consent was verified, confirmed and timeout was successfully executed by the treatment team. The patient was placed in the left lateral position. A digital rectal exam was performed and revealed internal hemorrhoids and A digital rectal exam was performed and revealed a skin tag. After appropriate level of anesthesia, the scope was passed. The EC-3890Li ([id number]) endoscope was introduced through the anus and advanced to the cecum, which was identified by both the appendix and ileocecal valve. The quality of the prep was fair. The instrument was then slowly withdrawn as the colon was fully examined. Scope withdrawal time was 12 minutes. COLON FINDINGS: Five smooth and polypoid shaped semi-pedunculated polyps ranging between 3-7mm in size were found at the cecum, in the ascending colon, and rectum. A polypectomy was performed with a cold snare and with cold forceps. The resection was complete, the polyp tissue was completely retrieved and sent to histology. Small internal hemorrhoids were found. Retroflexed views revealed no abnormalities. The scope was then completely withdrawn from the patient and the procedure terminated. ADVERSE EVENTS: There were no complications. IMPRESSIONS: 1. Five semi-pedunculated polyps ranging between 3-7mm in size were found at the cecum, in the ascending colon, and rectum; polypectomy was performed with a cold snare and with cold forceps 2. Small internal hemorrhoids RECOMMENDATIONS: 1. avoid NSAIDS for 2 weeks 2. await biopsy results 3. fiber rich diet 4. follow-up: office 2 week(s) 5. Monitor for any evidence of rectal bleeding. 6. yearly hemoquant 7. hemorrhoidal hygiene 8. increase dietary water RECALL: for Colonoscopy, pending biopsy results. Walter Echeverria DR eSigned: Walter Echeverria DR 09/26/2021 9:18 AM cc: CPT CODES: ICD9 CODES: PATIENT NAME: Lyndon Leija MR#: [id number]
[2021-09-26 10:11] VITALS: TEMP 97.1
[2021-09-26 10:17] VITALS: BP 122/67; O2SAT 98
== END 2021-09-26 10:00 | disposition home or self-care (01) ==
LOC: OR 07:30
PROVIDERS: ATTEND Surgery
PROC: 0DBP8ZX Excision of Rectum, Via Natural or Artificial Opening Endoscopic, Diagnostic (ICD-10-PCS; 2021-09-26)
PROC: 0DBH8ZX Excision of Cecum, Via Natural or Artificial Opening Endoscopic, Diagnostic (ICD-10-PCS; 2021-09-26)
PROC: 0DBK8ZX Excision of Ascending Colon, Via Natural or Artificial Opening Endoscopic, Diagnostic (ICD-10-PCS; principal; 2021-09-26 08:30)
DX: Z12.11 Encounter for screening for malignant neoplasm of colon (principal); D12.6 Benign neoplasm of colon, unspecified; K64.8 Other hemorrhoids; Z20.822 Contact with and (suspected) exposure to COVID-19
CPT/HCPCS: 82947; 88305; 45385; U0003; J2704; J2765 ×2; J7030

== ENCOUNTER 2022-11-20 07:19 | Day surgery (SDC) | payer BC ==
[2022-11-15 11:53] LABS: Potassium 4.4 mmol/L (3.5-5.1)
[2022-11-20] MEDS: NA CHLORIDE 0.9% 1,000 ML ONE ×2 (08:00→08:36)
[2022-11-20] MEDS ORDERED: propofoL 200 MG/20 ML VIAL IV ONE (08:22)
[2022-11-20] MEDS ORDERED: LIDOCAINE 1% MPF 30 ML VIAL ONE (08:22)
[2022-11-20] MEDS ORDERED: GLYCOPYRROLATE 0.2 MG/ML SYR ONE (08:22)
--- NOTE | 2022-11-20 09:16 | ENDO RPT ---
[address], [address] COLONOSCOPY PROCEDURE REPORT EXAM DATE: 11/20/2022 PATIENT NAME: Lyndon Leija MR #: [id number] BIRTHDATE: 1955 ATTENDING: Walter Echeverria DR STATUS: outpatient LAND CONSERVATION SPECIALIST: Vicky MATHUR and Preston Hall Admitly Tech INDICATIONS: The patient is a 67 yr old Female here for a colonoscopy due to colon cancer screening PROCEDURE PERFORMED: Colonoscopy with biopsy - cold polypectomy MEDICATIONS: Per Anesthesia. ESTIMATED BLOOD LOSS: None CONSENT: The patient understands the risks and benefits of the procedure and understands that these risks include, but are not limited to: sedation, allergic reaction, infection, perforation and/or bleeding. Alternative means of evaluation and treatment include, among others: physical exam, x-rays, and/or surgical intervention. The patient elects to proceed with this endoscopic procedure. DESCRIPTION OF PROCEDURE: During intra-op preparation period all mechanical medical equipment was checked for proper function. Hand hygiene and appropriate measures for infection prevention was taken. Procedure, possible complications, alternatives including, but not limited to possibility of bleeding, perforation, tear, infection, sepsis, need for surgery, need for blood transfusion, were explained to the patient. After the risks, benefits and alternatives of the procedure were thoroughly explained, Informed consent was verified, confirmed and timeout was successfully executed by the treatment team. The patient was placed in the left lateral position. After appropriate level of anesthesia, the scope was passed. The EC-3890Li ([id number]) endoscope was introduced through the anus and advanced to the cecum, which was identified by both the appendix and ileocecal valve. The quality of the prep was good. The instrument was then slowly withdrawn as the colon was fully examined. Scope withdrawal time was 15 minutes. COLON FINDINGS: Eight smooth sessile polyps ranging between 3-5mm in size with friable surfaces were found at the cecum, in the ascending colon, transverse colon, and at the splenic flexure. A polypectomy was performed using snare cautery, with a cold snare and with cold forceps. The resection was complete, the polyp tissue was completely retrieved and sent to histology. Mild diverticulosis was noted in the sigmoid colon. No bleeding was noted from the diverticulosis. Internal hemorrhoids were found. Retroflexed views revealed no abnormalities. The scope was then completely withdrawn from the patient and the procedure terminated. ADVERSE EVENTS: There were no complications. IMPRESSIONS: 1. Eight sessile polyps ranging between 3-5mm in size were found at the cecum, in the ascending colon, transverse colon, and at the splenic flexure; polypectomy was performed using snare cautery, with a cold snare and with cold forceps 2. Mild diverticulosis was noted in the sigmoid colon 3. Internal hemorrhoids RECOMMENDATIONS: 1. await biopsy results 2. fiber rich diet 3. follow-up: office 2 week(s) 4. Monitor for any evidence of rectal bleeding. 5. hemorrhoidal hygiene 6. avoid NSAIDS for 2 weeks RECALL: Return in 1 year(s) for Colonoscopy, pending biopsy results. Pending Biopsy Walter Echeverria DR eSigned: Walter Echeverria DR 11/20/2022 9:15 AM cc: CPT CODES: ICD9 CODES: PATIENT NAME: Lyndon Leija MR#: [id number]
[2022-11-20 09:44] VITALS: BP 106/55; TEMP 97.3; O2SAT 98
== END 2022-11-20 10:03 | disposition home or self-care (01) ==
LOC: OR 07:19
PROVIDERS: ATTEND Surgery
PROC: 0DBL8ZX Excision of Transverse Colon, Via Natural or Artificial Opening Endoscopic, Diagnostic (ICD-10-PCS; 2022-11-20)
PROC: 0DBH8ZX Excision of Cecum, Via Natural or Artificial Opening Endoscopic, Diagnostic (ICD-10-PCS; 2022-11-20)
PROC: 0DBK8ZX Excision of Ascending Colon, Via Natural or Artificial Opening Endoscopic, Diagnostic (ICD-10-PCS; principal; 2022-11-20 08:30)
DX: Z12.11 Encounter for screening for malignant neoplasm of colon (principal); D12.2 Benign neoplasm of ascending colon; D12.0 Benign neoplasm of cecum; D12.3 Benign neoplasm of transverse colon; K57.30 Diverticulosis of large intestine without perforation or abscess without bleeding; K64.8 Other hemorrhoids
CPT/HCPCS: 45385; 80048; 36415; 82947; 88305; J2704; J2001; J7030

== ENCOUNTER 2023-04-23 10:31 | Day surgery (SDC) | payer BC ==
--- NOTE | 2023-04-19 13:55 | EKG ---
Test Date: 2023-04-19 Test Time: 11:20:29 Auto Accessories Installer: CHRIS MEASUREMENT RESULTS: Intervals: Rate: 69 DE: 158 QRSD: 78 QT: 396 QTc: 424 Mclean: P: 71 DE: 158 QRS: 26 T: 64 INTERPRETIVE STATEMENTS: Normal sinus rhythm Normal ECG No previous ECG available for comparison Electronically Signed On 04-19-23 13:54:28 CDT by Margarito Hernandez
[2023-04-23] MEDS ORDERED: NA CHLORIDE 0.9% 1,000 ML ONE (11:11)
[2023-04-23] MEDS ORDERED: propofoL 200 MG/20 ML VIAL IV ONE (11:37)
[2023-04-23] MEDS ORDERED: LIDOCAINE 1% MPF 2 ML AMPULE ONE (11:38)
[2023-04-23 11:54] VITALS: O2SAT 96
[2023-04-23 12:46] VITALS: BP 127/67; TEMP 97
== END 2023-04-23 13:00 | disposition home or self-care (01) ==
LOC: PRE 10:31 → OR 13:00
PROVIDERS: ATTEND Surgery
PROC: 0DJD8ZZ Inspection of Lower Intestinal Tract, Via Natural or Artificial Opening Endoscopic (ICD-10-PCS; principal; 2023-04-23 12:45)
DX: Z12.11 Encounter for screening for malignant neoplasm of colon (principal); Z86.010 Personal history of colon polyps; K64.8 Other hemorrhoids; K57.30 Diverticulosis of large intestine without perforation or abscess without bleeding
CPT/HCPCS: 93005; 80048; 36415; 82947; 45378; J2704; J7030